=== PATIENT | male | born 1935 | race Caucasian/White ===

== ENCOUNTER 2017-09-17 08:44 | Day surgery (SDC) | payer OTHER, MEDICARE ==
[2017-09-17] MEDS ORDERED: EPINEPHRINE/PF 1 MG/ML AMP ONE (09:03)
[2017-09-17] MEDS ORDERED: NS 0.9% VIAL 10 ML ONE (09:03)
[2017-09-17] MEDS ORDERED: DUOVISC 1 KIT OPTH ONE (09:04)
[2017-09-17] MEDS ORDERED: MOXIFLOXACIN HCL 10 DROPS/ML **OR USE OPTH ONE (09:04)
[2017-09-17] MEDS ORDERED: BALANCED SALT IRRIG PLAIN 500 ML BTL IRR ONE (09:04)
[2017-09-17] MEDS ORDERED: LIDOCAINE 1% MPF 2 ML AMPULE ONE (09:04)
[2017-09-17] MEDS ORDERED: TETRACAINE HCL 0.5% 2ML OPTH ONE (09:15)
[2017-09-17] MEDS ORDERED: BUPIVACAINE 0.25% PF 10 ML VIAL ONE (09:15)
[2017-09-17] MEDS ORDERED: CYCLOPENTOLATE 1% OPTH 2 ML ONE (09:15)
[2017-09-17] MEDS ORDERED: LIDOCAINE 2% MPF 5 ML VIAL ONE (09:15)
[2017-09-17] MEDS ORDERED: NA CHLORIDE 0.9% 500 ML ONE (09:16)
[2017-09-17] MEDS ORDERED: LIDOCAINE HCL/PF 3.5% OPTH GEL ONE (09:16)
[2017-09-17] MEDS ORDERED: PHENYLEPHRINE 10% OPTH 5ML ONE (09:16)
[2017-09-17] MEDS ORDERED: CYCLOPENTOLATE 1% OPTH 2 ML OPTH ONE ×2 (09:45→09:50)
[2017-09-17] MEDS ORDERED: PHENYLEPHRINE 10% OPTH 5ML OPTH ONE ×2 (09:45→09:50)
[2017-09-17] MEDS ORDERED: FENTANYL CITR 100 MCG/2 ML ONE (11:01)
[2017-09-17] MEDS ORDERED: MIDAZOLAM HCL 2 MG/2 ML INJ ONE (11:01)
--- NOTE | 2017-09-17 12:04 | P.BOP ---
Preoperative diagnosis: Nuclear sclerotic cataract OD Postoperative diagnosis: Same + floppy iris OD Primary procedure: Phacoemulsification with IOL OD, complex with iris retractors Estimated blood loss: None Anesthesia: Local (Topical with anesthesia for cataract surgery) Complications: None Implants: SN60WF +21.5 Transferred to: Other (Day surgery) Condition: Good
--- NOTE | 2017-09-17 23:11 | OP ---
Date of Procedure: 09/17/2017 Surgeon: Kamryn Kelley MD Anesthesiologist: 1. Benja Montoya CRNA. 2. Keith Spence M.D. Preoperative Diagnosis: Nuclear sclerotic right eye, miosis right eye, and floppy iris right eye. Operation Performed: Phacoemulsification with intraocular lens implant right eye complex with the use of iris retractors. Anesthesia: Per cataract surgery. Complications: None. Description Of The Procedure: In day surgery, the patient was prepped with Betadine and draped. A lid speculum was placed in the right eye. A conjunctival incision was made in the inferior nasal quadrant with Juanita scissors. A 1:1 mixture of 2% Xylocaine and 0.25% bupivacaine was placed around the globe. Approximately 5 mL were used. A [place] balloon was placed on the eye for approximately 5 minutes. The patient was brought into the operative room. The patient was prepped and draped in the usual sterile fashion for ophthalmic surgery. A lid speculum was placed in the eye. Paracentesis were made superiorly and inferiorly in the limbal cornea. Viscoat was placed in the anterior chamber. A crescent blade was used to create a tunnel incision in the temporal cornea and a keratome was used to enter the anterior chamber. The iris was floppy at the wound and the pupil not adequate for the capsulotomy. Three additional paracentesis sites were created with one at the wound, one 180 degrees from the wound, and one inferiorly; through these , 3 iris retractors were placed. Provisc was placed in the eye and 360 degree capsulotomy was performed. The lens was hydrodissected with balanced salt solution and moved freely. The lens was removed in a stop and chop fashion. 7.17 CDE was required. Irrigation and aspiration were used to remove residual cortex. Provisc was placed in the eye. A SN60WF +21.5 diopter lens was placed in the capsular bag without complications. The iris retractors were removed. Irrigation and aspiration were used to remove residual viscoelastic. The paracentesis sites were hydrated with balanced salt solution and the wound and paracentesis sites were inspected and found to be watertight. Intracameral Vigamox 0.07 cc was injected at the end of the procedure. The eye was irrigated with balanced salt solution. The eye was patched with a soft cotton patch and [place] metal shield. The patient was returned to day surgery in good condition. Comments: Akten was placed in the eye in Day surgery and irrigated out of the eye with BSS in the OR. Preservative free 1% lidocaine was placed in the anterior chamber. This was followed by 1:5000 epinephrine. Discharge Instructions: Mr. Dean was discharged to home in good condition and is to follow up with Dr. Kelley in the morning. RAFAL/WESLEY Voice ID: [id number] Report ID: [id number] MTDD
== END 2017-09-17 12:35 | disposition home or self-care (01) ==
LOC: OR 08:44
PROVIDERS: ATTEND Ophthalmology Retina Specialist
PROC: 08RJ3JZ Replacement of Right Lens with Synthetic Substitute, Percutaneous Approach (ICD-10-PCS; principal; 2017-09-17 10:30)
DX: H25.11 Age-related nuclear cataract, right eye (principal); E78.00 Pure hypercholesterolemia, unspecified; J44.9 Chronic obstructive pulmonary disease, unspecified; Z87.891 Personal history of nicotine dependence
CPT/HCPCS: 66982; J0171; J2001; J2250; J3010; V2630